=== PATIENT | male | born 1985 | race African-American/Black ===

== ENCOUNTER 2020-08-27 16:03 | Emergency (ER) | payer OTHER ==
[~2020-08-27] VITALS: Ht 180.3 cm; Wt 109.5 kg
[2020-08-27] MEDS ORDERED: CLEOCIN HCL300 MG PO (17:14)
== END 2020-08-27 17:32 | disposition home or self-care (01) ==
LOC: FSED 16:13
DX: S01.511A Laceration without foreign body of lip, initial encounter (principal); W01.0XXA Fall on same level from slipping, tripping and stumbling without subsequent striking against object, initial encounter; Y93.01 Activity, walking, marching and hiking; Y92.89 Other specified places as the place of occurrence of the external cause; F17.210 Nicotine dependence, cigarettes, uncomplicated
CPT/HCPCS: 99283